=== PATIENT | male | born 1940 | race Caucasian/White ===

== ENCOUNTER → 2021-10-11 | Outpatient (CLI) | payer MEDICARE ==
[~2021-10-11] MED LIST: ALEVE220 M1 PO; CARDIZEM CD180 MG PO; CATAPRES 0.1MG0.1 MG PO; CETIRIZINE HCL10 MG PO; COZAAR100 MG PO; COZAAR50 MG PO; DILTIAZEM ER360 MG PO; ECOTRIN81 MG PO; FUROSEMIDE40 MG PO; LASIX40 MG PO; LEVAQUIN500 MG PO; LIPITOR TAB 1010 MG PO; LIPITOR TAB 2020 MG PO; LOPRESSOR 50 MG50 MG PO; LOPRESSOR100 MG PO; MAPAP ARTHRITI650 MG PO; MICROZIDE12.5 MG PO; NORVASC2.5 MG PO; PERCOCET 5/325 T1 EA PO; SINGULAIR10 MG PO; XARELTO 15 MG T15 MG PO; XARELTO20 MG PO
== END ==
LOC: HEART 5 07:46
DX: I48.91 Unspecified atrial fibrillation (principal); I25.10 Atherosclerotic heart disease of native coronary artery without angina pectoris; Z95.2 Presence of prosthetic heart valve; I08.1 Rheumatic disorders of both mitral and tricuspid valves
CPT/HCPCS: 78452; 93306; A9502; J2785